=== PATIENT | male | born 1935 | race Caucasian/White ===

== ENCOUNTER 2019-09-05 16:15 | Emergency (ER) | payer MEDICARE, OTHER ==
[~2019-09-05] VITALS: Ht 170.2 cm; Wt 63.5 kg
[~2019-09-05 16:15] MED LIST: ASPI325 PO; CAPT25 PO; CAPT50 PO; CHLO25B PO; CLOBET30L TOP; Caltrate-600 W1 EACH PO; Chlorthalidone25 MG PO; Excedrin Extra1 EACH PO; FINA5 PO; FLONASE ALLERG9.9 ML NS; GABA600 PO; GLIP2.5ER PO; GLIP5 PO; HYDR1TAB94 PO; METF500 PO; METO100ER PO; METO25ER PO; Milk Of Ma400 MG/5 M PO; NITR.4SL SL; NITR.6SL SL; TAMS.4ER PO
[2019-09-05 17:07] LABS: BASOPHILS ABSOLUTE AUTO 0.09 K/mm3 (0.00-0.23); BASOPHILS PERCENT AUTO 1 % (0-2); EOSINOPHILS ABSOLUTE AUTO 0.47 K/mm3 (0.00-0.68); EOSINOPHILS PERCENT AUTO 4 % (0-6); Hematocrit 40.2 % (37.0-53.0); Hemoglobin 12.9 g/dL (13.5-17.5); IMMATURE GRAN ABSOLUTE AUTO 0.09 K/mm3 (0.00-0.10); IMMATURE GRAN PERCENT AUTO 1 % (0-1); LYMPHOCYTES ABSOLUTE AUTO 1.95 K/mm3 (0.84-5.20); LYMPHOCYTES PERCENT AUTO 17 % (21-46); MONOCYTES ABSOLUTE AUTO 0.93 K/mm3 (0.16-1.47); MONOCYTES PERCENT AUTO 8 % (4-13); Mean Corpuscular HGB 29.3 pg (26.0-34.0); Mean Corpuscular HGB Conc 32.1 g/dL (31.5-36.5); Mean Corpuscular Volume 91 fL (80-100); Mean Platelet Volume 9.9 fL (9.1-12.4); NEUTROPHILS ABSOLUTE AUTO 8.24 K/mm3 (1.96-9.15); NEUTROPHILS PERCENT AUTO 70 % (41-73); Platelet Count 251 K/mm3 (150-400); RDW Coefficient Variation 13.2 % (11.7-14.2); RDW Standard Deviation 44.1 fL (35.1-46.3); Red Blood Cell Count 4.41 M/mm3 (4.30-5.90); White Blood Cell Count 11.77 K/mm3 (4.00-11.30)
[2019-09-05 17:28] LABS: Alanine Aminotransfer (ALT/SGP 30 U/L (12-78); Albumin, Blood 4.1 g/dL (3.4-5.0); Albumin/Globulin Ratio 1.1 (0.8-1.8); Alk Phos 106 U/L (50-136); Anion Gap 9 mmol/L (6-16); Aspartate Aminotrans (AST/SGOT 22 U/L (12-37); Bilirubin, Total 1.3 mg/dL (0.1-1.0); Blood Urea Nitrogen 31 mg/dL (8-24); CO2, Blood 25 mmol/L (21-32); Calcium, Blood 9.2 mg/dL (8.5-10.1); Chloride, Blood 106 mmol/L (98-108); Creatinine, Blood 1.07 mg/dL (0.60-1.20); Globulin, Blood 3.6 g/dL (2.2-4.0); Glomerular Filtration Rate >60 (60-); Glucose, Blood 164 mg/dL (70-99); Potassium, Blood 3.7 mmol/L (3.5-5.5); Sodium, Blood 140 mmol/L (136-145); Total Protein, Blood 7.7 g/dL (6.4-8.2); Troponin I <0.015 ng/mL (0.000-0.040)
[2019-09-05] MEDS ORDERED: MECL12.5 PO (20:03)
== END 2019-09-05 20:43 | disposition home or self-care (01) ==
LOC: ER 16:15
PROVIDERS: Physician Assistant
DX: H81.392 Other peripheral vertigo, left ear (principal); I10 Essential (primary) hypertension; E11.9 Type 2 diabetes mellitus without complications; Z88.5 Allergy status to narcotic agent; Z88.8 Allergy status to other drugs, medicaments and biological substances; Z79.82 Long term (current) use of aspirin; Z79.899 Other long term (current) drug therapy
CPT/HCPCS: 36415; 70450; 80053; 83690; 84484; 85025; 93005; 93010; 96374; 99284-25; J2405

== ENCOUNTER → 2020-02-07 | Outpatient (CLI) | payer MEDICARE ==
[~2020-02-07] MED LIST changes: +MECL12.5 PO
== END | disposition home or self-care (01) ==
LOC: LAB SHORT 08:20 → LAB 08:20 → LAB FUT 01-04 16:35
PROVIDERS: Internal Medicine
DX: R79.89 Other specified abnormal findings of blood chemistry (principal)
CPT/HCPCS: 81050

== ENCOUNTER → 2020-09-10 | Outpatient (CLI) | payer MEDICARE, OTHER ==
[2020-09-10 18:35] LABS: Creatinine, Urine Random 66.2 mg/dL (27.00-270.00)
[2020-09-10 18:38] LABS: Microalb/Creat Ratio UR, Rand 52.266 mg/g (0.000-30.000); Microalbumin, Random Urine 34.6 mg/L (0.000-20.000)
== END | disposition home or self-care (01) ==
LOC: LAB 09:10
PROVIDERS: Internal Medicine
DX: E78.5 Hyperlipidemia, unspecified (principal); E11.8 Type 2 diabetes mellitus with unspecified complications; I10 Essential (primary) hypertension; Z79.899 Other long term (current) drug therapy
CPT/HCPCS: 82043; 82570

== ENCOUNTER 2021-12-04 08:08 | Observation (INO) | payer MEDICARE, OTHER ==
[~2021-12-04] VITALS: Ht 167 cm; Wt 62.9 kg
[~2021-12-04 08:08] MED LIST changes: -METO100ER PO
[2021-12-04] MEDS ORDERED: Amlodipine Bes2.5 MG PO (08:43)
[2021-12-04] MEDS ORDERED: ELIQUIS2.5 MG PO (08:44)
[2021-12-04] MEDS ORDERED: Isosorbide Mono30 MG PO (08:45)
[2021-12-04] MEDS ORDERED: QUIN10 (08:45)
[2021-12-04] MEDS ORDERED: QUIN10 PO (08:46)
--- NOTE | 2021-12-04 14:52 | NUR ---
PATIENT ADMIT TO PC[facility] AROUND 1100 AM [facility]. ALERT AND ORIENTED X4. NEURO AT BASELINE. PATIENT OVERALL SLIGHTLY WEAK/FRAGILE. STATES HE OCCASIONALLY USES WALKER AT HOME. ABLE TO AMBULATE TO BATHROOM WITH SBA. UPPER EXTREMITIES SHAKY, PT STATES BASELINE. ON ROOM AIR, SATING HIGH 90'S. LUNGS SOUNDING CLEAR. TELE SHOWING AFIB. PATIENT STATES CHRONIC AFIB. POST CRIMINALIST WITH ONE STENT TO MID LAD. RIGHT RADIAL SITE WNL, REMAINS SOFT AND NON TENDER. SCANT DRAINAGE UNDER TR BAND THAT REMAINS UNCHANGED. STRONG RADIAL PULSE. POST OP VITAL SIGNS COMPLETE. DENIES PAIN AT SITE. LARGE HERNIA TO LOWER ABDOMIN, PATIENT STATES PAIN COME AND GOES WITH HERNIA. UP TO BATHROOM. VOIDING WNL. TR BAND AIR REMOVAL STARTED AT 1300. SPOKE WITH GRANDDAUGHTER KRISTINE ON PHONE TO COMPLETE MED REC. CALL LIGHT IN REACH. ORIENTED TO ROOM AND UNIT. SPOKE WITH PATIENT REGARDING CODE STATUS. PATIENT STATES FULL CODE AT THIS TIME. CALL PLACED TO DR. GARDNER, MESSAGE LEFT REGARDING ADMISSION ORDER. WILL CONTINUE TO MONITOR.
--- NOTE | 2021-12-04 17:55 | NUR ---
SHIFT SUMMARY: NO ACUTE CHANGES SEE PREVIOUS NOTE. VITALS REMAIN STABLE. DENIES CHEST PAIN/PRESSURE. NO CHANGES IN TELE. RIGHT RADIAL SITE WNL. TR BAND REMOVED AT 1710. SITE REMAINS SOFT AND NONTENDER. TEGADERM AND ARM BOARD IN PLACE. PATIENT DENIES SITE PAIN. UP TO BATHROOM WITH SBA. INTAKE AND OUTPUT WNL. SON IN TO VISIT. CALLING APPROP. WILL CONTINUE TO MONITOR AND REPORT OFF.
--- NOTE | 2021-12-04 20:17 | NUR ---
ASSUMED CARE OF PATIENT AT [facility] 1905 FROM [facility] RN. PATIENT ALERT AND ORIENTED X4. PATIENT DENIES CP/PRESSURE, PAIN ELSEWHERE, NUMBNESS, TINGLING, DIZZINESS, AND NAUSEA. PATIENT S/P ANGIO R RADIAL SITE WNL; NO ACTIVE BLEEDING, HEMATOMA; SOME BRUISING NOTED ABOVE. AFIB BBB ON TELE; OXYGEN SATURATION ABOVE 90% ON ROOM AIR. PIV S/L. PATIENT REPORTS HE HAS BEEN HAVING SOME SHORTNESS OF BREATH OFF AND ON; ABLE TO LAY FLAT ON BED; NOT CURRENTLY. ONE ASSIST TO BATHROOM; SCDS PLACED. PATIENT REPORTS HISTORY OF PAUSES WHEN SLEEPING.
--- NOTE | 2021-12-04 21:21 | NUR ---
PATIENT HAS BEEN HAVING PAUSES; THREE SINCE 1899; LONGEST BEING 2.24 SECONDS. RECREATION COORDINATORDANIS Su RN NOTIFIED AND DISCUSSED.
--- NOTE | 2021-12-04 21:24 | NUR ---
PATIENT REFUSED SCD'S; REPORTS "MY LEGS FEEL LIKE SANDPAPER".
[2021-12-05 04:14] LABS: Hematocrit 38.7 % (37.0-53.0); Hemoglobin 12.7 g/dL (13.5-17.5); Mean Corpuscular HGB Conc 32.8 g/dL (31.5-36.5); Mean Corpuscular Volume 88 fL (80-100); Mean Platelet Volume 9.2 fL (9.1-12.4); Platelet Count 252 K/mm3 (150-400); RDW Coefficient Variation 13.5 % (11.7-14.2); Red Blood Cell Count 4.38 M/mm3 (4.30-5.90); White Blood Cell Count 8.14 K/mm3 (4.00-11.30)
[2021-12-05 04:42] LABS: Bun/Creatinine Ratio 28.1 (12.0-20.0); Calcium, Blood 9.4 mg/dL (8.5-10.1); Creatinine, Blood 1.21 mg/dL (0.60-1.20); Potassium, Blood 4.2 mmol/L (3.5-5.5)
--- NOTE | 2021-12-05 06:31 | NUR ---
PATIENT SLEPT ABOUT NINE HOURS LAST NIGHT. MULTIPLE PAUSES THROUGHOUT THE NIGHT; PATIENT ASYMPTOMATIC; STILL OPERATOR HELPER DAN M AWARE.
[2021-12-05] MEDS ORDERED: CLOP75 PO (07:47)
--- NOTE | 2021-12-05 09:45 | NUR ---
UPDATE DISCHARGE ORDERS PROVIDED. PER REPORT PT HAVING [address] GARDNER NOTIFIED AND ORDERS PLACED FOR ZIO PATCH TO BE PLACED PRIOR TO DC. ORDERS TO STILL GIVE PO METOPROLOL. ZIO PATCH PLACED BY [facility] STAFF. DC INSTRUCTIONS PROVIDED TO PT AND PT EDUCATED ON MEDICATIONS. ALL QUESTIONS ANSWERED. PT'S GRANDDAUGHTER IN TO TAKE PT HOME. PT TAKEN OUT BY
== END 2021-12-05 09:38 | disposition home or self-care (01) ==
LOC: MHTC 08:08 → PCU 10:54 → MHTC 19:09 → PCU 12-05 09:38
PROVIDERS: ADMIT Internal Medicine Interventional Cardiology
DX: I25.118 Atherosclerotic heart disease of native coronary artery with other forms of angina pectoris (principal); E11.9 Type 2 diabetes mellitus without complications; I10 Essential (primary) hypertension; E78.5 Hyperlipidemia, unspecified; Z88.5 Allergy status to narcotic agent; Z88.8 Allergy status to other drugs, medicaments and biological substances
CPT/HCPCS: 36415; 76937; 80048; 85027; 85347; 92978; 93246; 93454; 99152; 99153; A9270; C1725; C1753; C1769; C1874; C1887; C1894; C9600; J1644; J2250; J3010; J7030; J7050; Q9967

== ENCOUNTER → 2022-05-28 | Outpatient (CLI) | payer MEDICARE, OTHER ==
[~2022-05-28] MED LIST changes: +Amlodipine Bes2.5 MG PO; +CLOP75 PO; +ELIQUIS2.5 MG PO; +Isosorbide Mono30 MG PO; +QUIN10; +QUIN10 PO
[2022-06-02 10:36] LABS: Stool Occult Blood Guaiac 1 Neg (Neg)
[2022-06-02 10:37] LABS: Stool Occult Blood Guaiac 2 Neg (Neg)
[2022-06-02 10:38] LABS: Stool Occult Blood Guaiac 3 Neg (Neg)
== END | disposition home or self-care (01) ==
LOC: LAB SHORT 09:45 → LAB 09:45
PROVIDERS: Internal Medicine
DX: D64.9 Anemia, unspecified (principal)
CPT/HCPCS: 82270

== ENCOUNTER → 2023-02-06 | Outpatient (CLI) | payer MEDICARE, OTHER ==
[2023-02-09 10:26] LABS: Stool Occult Bld Immuno 1 Negative (NEGATIVE)
== END | disposition home or self-care (01) ==
LOC: LAB SHORT 11:00 → LAB 11:00
PROVIDERS: Internal Medicine
DX: D64.9 Anemia, unspecified (principal)
CPT/HCPCS: 82274

== ENCOUNTER → 2023-03-10 | Outpatient (CLI) | payer MEDICARE ==
[2023-03-12 12:43] LABS: Stool Occult Bld Immuno 1 Negative (NEGATIVE); Stool Occult Bld Immuno 2 Negative (NEGATIVE)
== END ==
LOC: LAB 16:55 → LAB SHORT 16:55
PROVIDERS: Internal Medicine
DX: D64.9 Anemia, unspecified (principal)
CPT/HCPCS: 82274

== ENCOUNTER → 2023-03-23 | Outpatient (CLI) | payer MEDICARE, OTHER ==
[2023-03-30 10:38] LABS: Stool Occult Blood Guaiac 1 Neg (Neg); Stool Occult Blood Guaiac 2 Neg (Neg)
[2023-03-30 10:39] LABS: Stool Occult Blood Guaiac 3 Neg (Neg)
== END ==
LOC: LAB 14:25 → LAB SHORT 14:25
PROVIDERS: Internal Medicine
DX: D64.9 Anemia, unspecified (principal)
CPT/HCPCS: 82272